=== PATIENT | female | born 1955 | race Caucasian/White ===

== ENCOUNTER 2020-09-04 09:05 | Outpatient (REF) | payer BC, SELFPAY ==
[2020-09-04 10:33] LABS: Lithium 0.78 mmol/L (0.60-1.20)
[2020-09-04 10:47] LABS: Alanine Aminotransferase 108 U/L (0-31); Albumin Level 4.6 g/dL (3.5-5.0); Alkaline Phosphatase 82 U/L (39-117); Anion Gap 11 (12-20); Aspartate Amino Transferase 80 U/L (5-31); Bilirubin Total 0.5 mg/dL (0.0-1.0); Blood Urea Nitrogen 12 mg/dL (9-16); Calcium 10.1 mg/dL (8.4-10.2); Carbon Dioxide 26 mmol/L (22-29); Chloride 105 mmol/L (96-108); Cholesterol 154 mg/dL; Estimated Glomerular Filt Rate > 60; Glucose Random 121 mg/dL (60-115); HDL Cholesterol 42 mg/dL; LDL Cholesterol Calculated 83 mg/dl; Potassium 4.1 mmol/L (3.3-5.1); Sodium 138 mmol/L (135-145); Triglycerides 148 mg/dL
[2020-09-04 10:56] LABS: Thyroid Stimulating Hormone 0.96 uIU/mL (0.32-4.0); Vitamin D 25-OH Total 36.2 ng/mL (>30)
[2020-09-07 23:07] LABS: Lamotrigine Lamictal 7.1 mcg/mL (4.0-18.0)
== END 2020-09-04 09:06 | disposition home or self-care (01) ==
LOC: HO.LAB 09:05
PROVIDERS: Absent Provider Psychiatry & Neurology Psychiatry; PCP Nurse Practitioner Family; Visit Provider Nurse Practitioner Family
DX: F31.9 Bipolar disorder, unspecified (principal); Z79.899 Other long term (current) drug therapy
CPT/HCPCS: 36415; 80053; 80061; 80175; 80178; 82306; 84443

== ENCOUNTER 2021-06-28 09:54 | Outpatient (REF) | payer BC, SELFPAY ==
[2021-06-28 11:02] LABS: Estimated Average Glucose 123 mg/dL; Hemoglobin A1C 149.3738 umol/L; Hemoglobin A1c % 5.9 %
[2021-06-28 11:13] LABS: Lithium 0.66 mmol/L (0.60-1.20)
[2021-06-28 11:44] LABS: Alanine Aminotransferase 82 U/L (0-31); Albumin Level 4.6 g/dL (3.5-5.0); Alkaline Phosphatase 120 U/L (39-117); Anion Gap 13 (12-20); Aspartate Amino Transferase 54 U/L (5-31); Bilirubin Total 0.5 mg/dL (0.0-1.0); Blood Urea Nitrogen 17 mg/dL (9-16); Calcium 10.6 mg/dL (8.4-10.2); Carbon Dioxide 23 mmol/L (22-29); Chloride 107 mmol/L (96-108); Estimated Glomerular Filt Rate > 60; Glucose Fasting 119 mg/dL (60-99); Potassium 4.4 mmol/L (3.3-5.1); Sodium 139 mmol/L (135-145); Total Protein 7.2 g/dL (6.5-8.0)
[2021-06-28 11:50] LABS: Thyroid Stimulating Hormone 0.13 uIU/mL (0.32-4.0)
== END 2021-06-28 09:55 | disposition home or self-care (01) ==
LOC: HO.LAB 09:54
PROVIDERS: Absent Provider Nurse Practitioner Family; PCP Nurse Practitioner Family; Visit Provider Psychiatry & Neurology Psychiatry
DX: F31.9 Bipolar disorder, unspecified (principal); I10 Essential (primary) hypertension
CPT/HCPCS: 36415; 80053; 80178; 83036; 84443

== ENCOUNTER 2021-11-08 08:09 | Outpatient (REF) | payer BC, SELFPAY ==
[2021-11-08 08:44] LABS: Estimated Average Glucose 123 mg/dL; Hemoglobin A1c % 5.9 %
[2021-11-08 09:07] LABS: Calcium 10.6 mg/dL (8.4-10.2); Cholesterol 144 mg/dL; Glucose Fasting 129 mg/dL (60-99); HDL Cholesterol 48 mg/dL; LDL Cholesterol Calculated 69 mg/dl; Triglycerides 136 mg/dL
[2021-11-08 09:26] LABS: TSH reflex Free T4 0.01 uIU/mL (0.32-4.0)
[2021-11-10 16:51] LABS: Calcium (PTHI) 10.4 mg/dL (8.6-10.4); PTHI 73 pg/mL (16-77)
== END 2021-11-08 08:10 | disposition home or self-care (01) ==
LOC: HO.LAB 08:09
PROVIDERS: Absent Provider Nurse Practitioner Family; PCP Nurse Practitioner Family; Visit Provider Psychiatry & Neurology Psychiatry
DX: E03.9 Hypothyroidism, unspecified (principal); F31.9 Bipolar disorder, unspecified
CPT/HCPCS: 36415; 80061; 82310; 82947; 83036; 83970; 84439; 84443

== ENCOUNTER 2022-02-25 08:14 | Outpatient (REF) | payer BC, SELFPAY ==
[2022-02-25 11:54] LABS: Alanine Aminotransferase 51 U/L (0-31); Albumin Level 4.8 g/dL (3.5-5.0); Alkaline Phosphatase 132 U/L (39-117); Anion Gap 14 (12-20); Aspartate Amino Transferase 33 U/L (5-31); Bilirubin Total 0.6 mg/dL (0.0-1.0); Blood Urea Nitrogen 14 mg/dL (9-16); Calcium 10.3 mg/dL (8.4-10.2); Carbon Dioxide 24 mmol/L (22-29); Chloride 105 mmol/L (96-108); Estimated Glomerular Filt Rate > 60; Glucose Random 128 mg/dL (60-115); Potassium 4.2 mmol/L (3.3-5.1); Sodium 139 mmol/L (135-145); Total Protein 7.3 g/dL (6.5-8.0)
[2022-02-25 12:16] LABS: Thyroid Stimulating Hormone 3.76 uIU/mL (0.32-4.0)
[2022-03-02 07:02] LABS: Lamotrigine Lamictal 6.4 mcg/mL (4.0-18.0)
== END 2022-02-25 08:15 | disposition home or self-care (01) ==
LOC: HO.HMGCLDS 08:14
PROVIDERS: PCP Nurse Practitioner Family; Visit Provider Psychiatry & Neurology Psychiatry
DX: F31.9 Bipolar disorder, unspecified (principal)
CPT/HCPCS: 36415; 80053; 80175; 80178; 84443

== ENCOUNTER → 2022-03-02 14:50 | Outpatient (BNVA) | payer BC, SELFPAY | PROVIDERS: PCP Nurse Practitioner Family; Visit Provider Psychiatry & Neurology Psychiatry | DX: F31.78 Bipolar disorder, in full remission, most recent episode mixed (principal); E03.9 Hypothyroidism, unspecified; R73.03 Prediabetes | CPT/HCPCS: 90833 ==

== ENCOUNTER → 2022-07-07 13:58 | Outpatient (BNVA) | payer BC, SELFPAY | PROVIDERS: PCP Nurse Practitioner Family; Visit Provider Psychiatry & Neurology Psychiatry | DX: F31.78 Bipolar disorder, in full remission, most recent episode mixed (principal); R73.03 Prediabetes; E03.9 Hypothyroidism, unspecified | CPT/HCPCS: 99212 ==

== ENCOUNTER 2022-10-21 13:38 | Outpatient (AMB) | payer BC, SELFPAY ==
--- NOTE | 2022-10-21 14:14 | A.OFFPSYCH_ITS ---
Intake Intake Visit Reasons: depression Allergies No Known Allergies Allergy (Verified 03/02/22 15:22) Medication List - Last Reconciled 10/21/22 by Sebas Gomez MD clonidine HCl 0.1 mg PO TID 90 days lamotrigine 150 mg PO BID levothyroxine 100 mcg PO DAILY lithium carbonate 750 mg (2.5 x 300 mg) PO BEDTIME HPI- Psychiatric Chief Complaint: depression HPI Narrative: This patient is in psychiatric follow-up history of bipolar disorder has generally been stable with combination of lithium Lamictal and clonidine. Her primary care physician will be retiring. Patient is on thyroid replacement. She does have part-time job that she enjoys doing and has sold her trailer and has moved in to the family house that she grew up in with her sister she has 1 level and her sister has another. This apparently is working out quite well patient feels more stable no new medical concerns. She is stable long-term relationship with her boyfriend to lives with his son and grandchildren patient seems content present Past Psychiatric History: hx bipolar dx used to see dr santos no suicide attempt Mental Status Exam Mental Status Exam Narrative: Mental Status Exam Narrative: Appearance: Casually dressed Behavior: Cooperative appropriate psychomotor: Within normal limits Speech: Normal volume and prosody Thought proccess logical and goal-directed Thought content: Future oriented no self-harming thoughts Mood: Euthymic Affect: Appropriate to mood full affect SI:denies HI:denies VH/AH:none Delusions: None Insight/judgment: Good insight and judgment Memory/cog: Intact Results Reviewed Results Reviewed: [place] level 0.5 Lamictal level 5.6 LFTs mildly increased which they are chronically blood sugar was 111 kidney function unremarkable Assessment and Plan Assessment & Plan (1) Bipolar 1 disorder, mixed, full remission: Status: Acute Code(s): F31.78 - Bipolar disorder, in full remission, most recent episode mixed Plan Patient generally stable no adverse effects noted from combination of lithium Lamictal has been advised has done no added sweets diet she does have known fatty liver clonidine 0.1 t.i.d. for hypertension no psychosis future oriented continue plan of care encouraged daily walking Medications: Refilled lithium carbonate 750 mg (2.5 x 300 mg) PO BEDTIME 225 tabs 0RF clonidine HCl 0.1 mg PO TID 270 tabs 1RF 90 days Counseling and coordination of Care Pt. Self Management counseling: Exercise, Maintenance-social rhythm and Behavior activation Details-Self Mgmt counseling: Issues related to relationship with free moving in with her sister my satisfaction Diagnosis and Prognosis Counseling: Impact of diagnosis on life functions and Adequacy of current interventions Details: I spent [38] minutes reviewing the record, seeing the patient and documenting in the medical record. Counseling provided to the patient/caregiver as outlined below. Addressed patient/caregiver concerns regarding current medication regime including effective adherence. Addressed patient/caregiver concerns regarding diagnosis and prognosis including accuracy of diagnosis, prognosis over time, impact of diagnosis. Addressed patient/caregiver concerns regarding impact of recent stressors. [facility] Medical History (Updated 03/02/22 @ 15:39 by Sebas Gomez MD) Bipolar 1 disorder, mixed, full remission Borderline diabetes Hypothyroidism Social History: mother daughter attempted suicide gf suicided will be living with sister will be ling with her sister works PT has bf 1 son 1 daughter Substance History: none Trauma History: son 1976 sids Coding Level of Care Code Est Pt Level 3 (63204) Therapy 30m w/E&M (79456) Diagnoses Bipolar 1 disorder, mixed, full remission F31.78
== END 2022-10-21 14:50 | disposition home or self-care (01) ==
LOC: HO.HOP 13:38
PROVIDERS: PCP Nurse Practitioner Family; Visit Provider Psychiatry & Neurology Psychiatry
DX: F31.78 Bipolar disorder, in full remission, most recent episode mixed (principal)
CPT/HCPCS: 90833; 99213

== ENCOUNTER → 2022-10-21 13:38 | Outpatient (BNVA) | payer BC, SELFPAY | PROVIDERS: PCP Nurse Practitioner Family; Visit Provider Psychiatry & Neurology Psychiatry | DX: F31.78 Bipolar disorder, in full remission, most recent episode mixed (principal); R73.03 Prediabetes; E03.9 Hypothyroidism, unspecified | CPT/HCPCS: 90833; 99212 ==

== ENCOUNTER 2023-02-23 13:46 | Outpatient (AMB) | payer BC, SELFPAY ==
--- NOTE | 2023-02-23 15:16 | A.OFFPSYCH_ITS ---
Intake Intake Visit Reasons: depression Allergies No Known Allergies Allergy (Verified 03/02/22 15:22) HPI- Psychiatric Chief Complaint: depression HPI Narrative: Patient seen psychiatric follow-up. Patient doing well generally works part- time can manage her hours has been living with her sister continues generally to be stable. Medically her PCP retired still sees her boyfriend regularly. No manic or depressive episodes. Tolerating lithium Lamictal Past Psychiatric History: hx bipolar dx used to see dr santos no suicide attempt Mental Status Exam Mental Status Exam Narrative: Mental Status Exam Narrative: Appearance: Casually dressed Behavior: Cooperative appropriate psychomotor: Within normal limits Speech: Normal volume and prosody Thought proccess logical and goal-directed Thought content: Future oriented no self-harming thoughts Mood: Euthymic Affect: Appropriate to mood full affect SI:denies HI:denies VH/AH:none Delusions: None Insight/judgment: Good insight and judgment Memory/cog: Intact Assessment and Plan Assessment & Plan (1) Urinary frequency: Status: Acute Code(s): R35.0 - Frequency of micturition (2) Bipolar 1 disorder, mixed, full remission: Status: Acute Code(s): F31.78 - Bipolar disorder, in full remission, most recent episode mixed (3) Borderline diabetes: Status: Acute Code(s): R73.03 - Prediabetes (4) Hypothyroidism: Status: Acute Code(s): E03.9 - Hypothyroidism, unspecified Plan Patient does complain of frequent urination check UA check serum sodium check hemoglobin A1c other labs reviewed pt aware of risks benefits side effects Orders: Orders Sodium Urine Random 02/23/23 R73.03 - Prediabetes, R35.0 - Frequency of micturition UA w Microscopic 02/23/23 R35.0 - Frequency of micturition Hemoglobin A1c 02/23/23 R73.03 - Prediabetes, R35.0 - Frequency of micturition Counseling and coordination of Care Details-Self Mgmt counseling: relational issues Medication management counseling: Effectiveness and Side effects Diagnosis and Prognosis Counseling: Impact of diagnosis on life functions and Adequacy of current interventions Details: I spent [38] minutes reviewing the record, seeing the patient and documenting in the medical record. Counseling provided to the patient/caregiver as outlined below. Addressed patient/caregiver concerns regarding current medication regime including effective adherence. Addressed patient/caregiver concerns regarding diagnosis and prognosis including accuracy of diagnosis, prognosis over time, impact of diagnosis. Addressed patient/caregiver concerns regarding impact of recent stressors. [facility] Medical History (Updated 02/23/23 @ 15:01 by Sebas Gomez MD) Bipolar 1 disorder, mixed, full remission Borderline diabetes Hypothyroidism Social History: mother daughter attempted suicide gf suicided will be living with sister will be ling with her sister works PT has bf 1 son 1 daughter Substance History: none Trauma History: son 1976 sids Coding Level of Care Code Est Pt Level 3 (82400) Therapy 30m w/E&M (68804) Diagnoses Urinary frequency R35.0 Bipolar 1 disorder, mixed, full remission F31.78 Borderline diabetes R73.03 Hypothyroidism E03.9
== END 2023-02-23 15:28 | disposition home or self-care (01) ==
LOC: HO.HOP 13:46
PROVIDERS: PCP Nurse Practitioner Family; Visit Provider Psychiatry & Neurology Psychiatry
DX: F31.78 Bipolar disorder, in full remission, most recent episode mixed (principal); R35.0 Frequency of micturition; R73.03 Prediabetes; E03.9 Hypothyroidism, unspecified
CPT/HCPCS: 90833; 99213

== ENCOUNTER → 2023-02-23 13:46 | Outpatient (BNVA) | payer BC, SELFPAY | PROVIDERS: PCP Nurse Practitioner Family; Visit Provider Psychiatry & Neurology Psychiatry | DX: F31.78 Bipolar disorder, in full remission, most recent episode mixed (principal); R73.03 Prediabetes; E03.9 Hypothyroidism, unspecified; R35.0 Frequency of micturition | CPT/HCPCS: 90833; 99212 ==

== ENCOUNTER 2023-06-14 08:06 | Outpatient (REF) | payer BC, SELFPAY ==
[2023-06-14 11:34] LABS: Appearance Urine Cloudy; Color Urine Yellow; Glucose Urine UA Negative (Negative); Leukocyte Esterase Urine Large (3+) (Negative); Nitrite Urine Negative (Negative); PH 6.5 (5.0-9.0); Specific Gravity - Urine 1.015 (1.005-1.025); UMIC TRIGGER UA YES; Urine Blood Negative (Negative); Urine Ketones Negative (Negative); Urine Protein Negative (Neg-Trace)
[2023-06-14 11:35] LABS: Estimated Average Glucose 126 mg/dL
[2023-06-14 12:11] LABS: Lithium 0.64 mmol/L (0.60-1.20)
[2023-06-14 12:18] LABS: Alanine Aminotransferase 36 U/L (0-31); Albumin Level 4.2 g/dL (3.5-5.0); Alkaline Phosphatase 106 U/L (39-117); Anion Gap 12 (12-20); Aspartate Amino Transferase 26 U/L (5-31); Bilirubin Total 0.4 mg/dL (0.0-1.0); Blood Urea Nitrogen 13 mg/dL (9-16); Calcium 10.2 mg/dL (8.4-10.2); Carbon Dioxide 26 mmol/L (22-29); Chloride 105 mmol/L (96-108); Estimated Glomerular Filt Rate > 60; Glucose Fasting 132 mg/dL (60-99); Potassium 3.8 mmol/L (3.3-5.1); Sodium 139 mmol/L (135-145); TSH reflex Free T4 < 0.01 uIU/mL (0.32-4.0); Total Protein 7.2 g/dL (6.5-8.0)
[2023-06-14 12:35] LABS: Bacteria Urine 3+ (None Seen); Hyaline Casts Urine 0-2 /LPF (0-2); RBC Urine 0-2 /HPF (0-2)
[2023-06-14 13:06] LABS: Free T4 (Free Thyroxine) 1.22 ng/dL (0.71-1.85)
[2023-06-18 23:59] LABS: Lamotrigine Lamictal 4.1 mcg/mL (2.5-15.0)
== END 2023-06-14 08:07 | disposition home or self-care (01) ==
LOC: HO.HMGCLDS 08:06
PROVIDERS: Visit Provider Psychiatry & Neurology Psychiatry
DX: R35.0 Frequency of micturition (principal); F31.78 Bipolar disorder, in full remission, most recent episode mixed; R73.03 Prediabetes; E03.9 Hypothyroidism, unspecified; Z79.899 Other long term (current) drug therapy
CPT/HCPCS: 36415; 80053; 80175; 80178; 81001; 83036; 84300; 84439; 84443

== ENCOUNTER 2023-06-15 13:34 | Outpatient (AMB) | payer BC, SELFPAY ==
--- NOTE | 2023-06-15 13:38 | MHC.OFFVISPS ---
Intake Intake Visit Reasons: depression Allergies No Known Allergies Allergy (Verified 03/02/22 15:22) Medication List - Last Reconciled 06/15/23 by Sebas Gomez MD amlodipine 5 mg PO DAILY clonidine HCl 0.1 mg PO TID 90 days lamotrigine 150 mg PO BID levothyroxine 88 mcg PO DAILY lithium carbonate 750 mg (2.5 x 300 mg) PO BEDTIME HPI- Psychiatric Chief Complaint: depression HPI Narrative: new pcp Lynn Flynn [employer] on hctz 25 mg 2 months now on amlodipine 5 mg no manic no significant depressive episodes no manic episodes. We have recommended no added sweets for long period of time for the patient because of intermittently elevated blood sugar she is on thyroid replacement. No complaints of side effects has generally been stable on clonidine for anxiety and secondary for hypertension she is now on amlodipine in addition. She has been on lithium and Lamictal with good effect Past Psychiatric History: hx bipolar dx used to see dr santos no suicide attempt Mental Status Exam Mental Status Exam Narrative: Mental Status Exam Narrative: Appearance: Casually dressed Behavior: Cooperative appropriate psychomotor: Within normal limits Speech: Normal volume and prosody Thought proccess logical and goal-directed Thought content: Future oriented no self-harming thoughts Mood: Euthymic Affect: Appropriate to mood full affect SI:denies HI:denies VH/AH:none Delusions: None Insight/judgment: Good insight and judgment Memory/cog: Intact tremor noted Assessment and Plan Assessment & Plan (1) Bipolar 1 disorder, mixed, full remission: Status: Acute Code(s): F31.78 - Bipolar disorder, in full remission, most recent episode mixed (2) Borderline diabetes: Status: Acute Code(s): R73.03 - Prediabetes (3) Hypothyroidism: Status: Acute Code(s): E03.9 - Hypothyroidism, unspecified Plan Pt fenerally stable works PT still with bf has been started on hctz and amlodipine ll.66 discussed potential interacactions warnings re lith toxicity hga1c 6.0 she will review with pcp tsh 0.01 she will review with pcp discussed results of labs with pt Levothyroxine needs to be decreased patient may need to be started on metformin she will see her PCP Medications: Refilled lamotrigine 150 mg PO BID 180 tabs 1RF lithium carbonate 750 mg (2.5 x 300 mg) PO BEDTIME 225 tabs 0RF Counseling and coordination of Care Pt. Self Management counseling: Med illness tx adherence and General coping skills Diagnosis and Prognosis Counseling: Adequacy of current interventions Details: I spent [37] minutes reviewing the record, seeing the patient and documenting in the medical record. Counseling provided to the patient/caregiver as outlined below. Addressed patient/caregiver concerns regarding current medication regime including effective adherence. Addressed patient/caregiver concerns regarding diagnosis and prognosis including accuracy of diagnosis, prognosis over time, impact of diagnosis. Addressed patient/caregiver concerns regarding impact of recent stressors. [facility] Medical History (Updated 02/23/23 @ 15:01 by Sebas Gomez MD) Bipolar 1 disorder, mixed, full remission Borderline diabetes Hypothyroidism Social History: mother daughter attempted suicide gf suicided will be living with sister will be ling with her sister works PT has bf 1 son 1 daughter Substance History: none Trauma History: son 1976 sids Coding Level of Care Code Est Pt Level 3 (46517) Therapy 30m w/E&M (01992) Diagnoses Bipolar 1 disorder, mixed, full remission F31.78 Borderline diabetes R73.03 Hypothyroidism E03.9
== END 2023-06-15 14:02 | disposition home or self-care (01) ==
LOC: HO.HOP 13:34
PROVIDERS: PCP Nurse Practitioner; Visit Provider Psychiatry & Neurology Psychiatry
DX: F31.78 Bipolar disorder, in full remission, most recent episode mixed (principal); R73.03 Prediabetes; E03.9 Hypothyroidism, unspecified
CPT/HCPCS: 90833; 99213

== ENCOUNTER → 2023-06-15 13:34 | Outpatient (BNVA) | payer BC, SELFPAY | PROVIDERS: PCP Nurse Practitioner; Visit Provider Psychiatry & Neurology Psychiatry ==

== ENCOUNTER 2023-10-28 14:04 | Outpatient (AMB) | payer BC, SELFPAY ==
--- NOTE | 2023-10-28 15:06 | A.OFFPSYCH_ITS ---
Intake Intake Visit Reasons: Depression Allergies No Known Allergies Allergy (Verified 03/02/22 15:22) Medication List - Last Reconciled 10/28/23 by Sebas Gomez MD amlodipine 5 mg PO DAILY clonidine HCl 0.1 mg PO TID 90 days lamotrigine 150 mg PO BID levothyroxine 75 mcg PO DAILY lithium carbonate 750 mg (2.5 x 300 mg) PO BEDTIME HPI- Psychiatric Chief Complaint: Depression HPI Narrative: The patient the patient continues to do quite well. Her mood is stable no manic or depressive symptoms. She does have a new primary care physician. She continues to see her boyfriend intermittently in she has generally satisfied the relationship although it is limited in his commitment. The patient enjoys living in a house where she has separate apartment with her sister is living in [place]. Patient continues on lithium Lamictal clonidine. He has been stable this regimen she does replacement. No complaints Side effects Past Psychiatric History: hx bipolar dx used to see dr santos no suicide attempt Mental Status Exam Mental Status Exam Narrative: Mental Status Exam Narrative: Appearance: Casually dressed Behavior: Cooperative appropriate psychomotor: Within normal limits Speech: Normal volume and prosody Thought proccess logical and goal-directed Thought content: Future oriented content with working part-time time situation Mood: Euthymic Affect: Appropriate to mood full affect SI:denies HI:denies VH/AH:none Delusions: None Insight/judgment: Good insight and judgment Memory/cog: Intact Mild tremor noted Assessment and Plan Assessment & Plan (1) Bipolar 1 disorder, mixed, full remission: Status: Acute Code(s): F31.78 - Bipolar disorder, in full remission, most recent episode mixed (2) Hypothyroidism: Status: Acute Code(s): E03.9 - Hypothyroidism, unspecified Plan Orders placed for lithium Lamictal metabolic phototypesetting equipment monitor renal function patient is thyroid medications or being managed by PCP . She does tend to variable mild hypo or hyperthyroid states with her TSH in the past reduce and that other times elevated. I did discuss her past results kidney functions have remained stable . History of fatty liver. The patient does intermittently take hydrochlorothiazide his can tend to lower lithium levels Orders: Orders Lamotrigine Lamictal 10/28/23 F31.78 - Bipolar disorder, in full remission, most recent episode mixed, E03.9 - Hypothyroidism, unspecified, R25.1 - Tremor, unspecified [place] 10/28/23 F31.78 - Bipolar disorder, in full remission, most recent episode mixed, E03.9 - Hypothyroidism, unspecified, R25.1 - Tremor, unspecified Comprehensive Met. Panel 10/28/23 F31.78 - Bipolar disorder, in full remission, most recent episode mixed, E03.9 - Hypothyroidism, unspecified, R25.1 - Tremor, unspecified Counseling and coordination of Care Details-Self Mgmt counseling: Issues related to jail and boyfriend adequacy of long-term relationship Medication management counseling: Effectiveness, Side effects and Dosing range Diagnosis and Prognosis Counseling: Adequacy of current interventions Details-Diagnosis/Prognosis counseling: Patient generally stable on this regimen no significant adverse effects noted continue to monitor thyroid and renal effects check levels Details: I spent [] minutes reviewing the record, seeing the patient and documenting in the medical record. Counseling provided to the patient/caregiver as outlined below. Addressed patient/caregiver concerns regarding current medication regime including effective adherence. Addressed patient/caregiver concerns regarding diagnosis and prognosis including accuracy of diagnosis, prognosis over time, impact of diagnosis. Addressed patient/caregiver concerns regarding impact of recent stressors. [facility] Medical History (Updated 10/28/23 @ 15:05 by Sebas Gomez MD) Bipolar 1 disorder, mixed, full remission Borderline diabetes Hypothyroidism Social History: mother daughter attempted suicide gf suicided will be living with sister will be ling with her sister works PT has bf 1 son 1 daughter Substance History: none Trauma History: son 1976 sids Coding Level of Care Code Est Pt Level 4 (95974) Diagnoses Bipolar 1 disorder, mixed, full remission F31.78 Hypothyroidism E03.9
== END 2023-10-28 18:00 | disposition home or self-care (01) ==
LOC: HO.HOP 14:04
PROVIDERS: PCP Nurse Practitioner; Visit Provider Psychiatry & Neurology Psychiatry
DX: F31.78 Bipolar disorder, in full remission, most recent episode mixed (principal); E03.9 Hypothyroidism, unspecified
CPT/HCPCS: 99214

== ENCOUNTER → 2023-10-28 14:04 | Outpatient (BNVA) | payer BC, SELFPAY | PROVIDERS: PCP Nurse Practitioner; Visit Provider Psychiatry & Neurology Psychiatry ==

== ENCOUNTER 2023-11-18 14:03 | Outpatient (REF) | payer BC, SELFPAY ==
[2023-11-18 16:46] LABS: Alanine Aminotransferase 38 U/L (0-31); Albumin Level 4.8 g/dL (3.5-5.0); Alkaline Phosphatase 192 U/L (39-117); Anion Gap 12 (12-20); Aspartate Amino Transferase 29 U/L (5-31); Bilirubin Total 0.5 mg/dL (0.0-1.0); Blood Urea Nitrogen 12 mg/dL (9-16); Carbon Dioxide 27 mmol/L (22-29); Chloride 98 mmol/L (96-108); Estimated Glomerular Filt Rate 60; Glucose Random 107 mg/dL (60-115); Potassium 2.7 mmol/L (3.3-5.1); Sodium 134 mmol/L (135-145); Total Protein 7.9 g/dL (6.5-8.0)
[2023-11-18 16:50] LABS: Lithium 2.13 mmol/L (0.60-1.20)
--- NOTE | 2023-11-18 18:20 | PM.EVENT ---
Event Note Date of Service: 11/18/23 Event Note: Spoke with patient over the phone spoke with patient over the phone spoke with patient over the phone regarding elevated lith level 2.1 k 2.7 patient had had diarrhea vomiting started having balance problems apparently had routine lab work today coincident with onset of symptoms. Spoke with patient advised to go to the emergency room will most likely need rehydration correction of potassium and lithium levels calcium also noted to be elevated. Spoke to emergency room triage Time Spent With Patient Time: Total time managing care of this patient today ____ minutes.
[2023-11-21 23:28] LABS: Lamotrigine Lamictal 4.1 mcg/mL (2.5-15.0)
== END 2023-11-18 14:04 | disposition home or self-care (01) ==
LOC: HO.HMGCLDS 14:03
PROVIDERS: Visit Provider Psychiatry & Neurology Psychiatry
DX: F31.78 Bipolar disorder, in full remission, most recent episode mixed (principal); E03.9 Hypothyroidism, unspecified; R25.1 Tremor, unspecified
CPT/HCPCS: 36415; 80053; 80175; 80178

== ENCOUNTER 2023-11-18 18:31 | Inpatient (IN) | payer MEDICARE, BC, SELFPAY ==
--- NOTE | ~2023-11-18 | XR_ITS ---
EXAMINATION: XR CHEST CLINICAL INFORMATION: Tremors COMPARISON: None available. TECHNIQUE: 2 views of the chest were obtained. FINDINGS: The lungs are adequately expanded. No focal consolidation. No pleural effusions or pneumothorax. The cardiac silhouette is mildly prominent. No acute osseous abnormality. XR/XR chest 2V IMPRESSION: No acute pulmonary disease. Mildly prominent cardiac silhouette.
[2023-11-18 18:41] VITALS: BP 169/68; PULSE 78; RESP 20; TEMP 37.3; O2SAT 93; BMI 33.4
--- NOTE | 2023-11-18 18:44 | ED.RECABL ---
HPI - Recheck/Abnormal Lab/Rx General Chief Complaint: Recheck/Abnormal Lab/Rx Stated Complaint: abnormal labs Time Seen by Provider: 11/18/23 18:52 History of Present Illness ED Provider: Dr. So HPI narrative: 68 y/o F patient; PMH HTN, bipolar disease on lithium; presents with concern for elevated lithium level. The patient's psychiatrist called her today and informed her that her lithium level was 2.1 with potassium 2.7. The patient does report that she feels slower than normal with slurred speech. She states this has been for approx the last 3 - 4 days. Also associated with non-productive cough, nausea/vomiting and non-blood diarrhea. She denies: fever or chills, SOB, abdominal pain, chest pain. She states she has actually been missing doses of her medication for the last few days due to her nausea/vomiting. Related Data Home Medications ?Medication ?Instructions ?Recorded ?Confirmed amlodipine 5 mg tablet 5 mg PO DAILY 06/15/23 10/28/23 levothyroxine 75 mcg tablet 75 mcg PO DAILY 10/28/23 10/28/23 Previous Rx's ?Medication ?Instructions ?Recorded clonidine HCl 0.1 mg tablet 0.1 mg PO TID 90 days #270 tabs 04/26/23 lamotrigine 150 mg tablet 150 mg PO BID #180 tabs 06/15/23 lithium carbonate 300 mg tablet 750 mg (2.5 x 300 mg) PO BEDTIME 06/15/23 #225 tabs Allergies Allergy/AdvReac Type Severity Reaction Status Date / Time No Known Allergies Allergy Verified 11/18/23 18:44 Review of Systems Review of Systems: Yes all other systems are reviewed and are negative Neurologic: Reports Abnormal speech present (Slowed speech ) and Denies Sensory deficit (Neuro) [facility] Past Medical History Attestation statement: The following information was validated with the patient. Source: old records reviewed Medical History Bipolar 1 disorder, mixed, full remission Borderline diabetes Hypothyroidism Social History Social History Smoked in Last 30 Days: No Use of substances other than those prescribed or required for medical reasons: No Advance Directives: No Advance Directives Information Provided: No Physical Exam Vital Signs: Vital Signs: Last Vital Signs Temp 99.1 F 11/18/23 18:41 Pulse 78 11/18/23 18:41 Resp 20 11/18/23 18:41 BP 169/68 H 11/18/23 18:41 Pulse Ox 93 11/18/23 18:41 O2 Del Method Room Air 11/18/23 18:41 BMI result Body Mass Index 33.4 Patient is afebrile and hemodynamically stable, mildly hypertensive. Const: General: cooperative Orientation/consciousness: patient oriented x3 HEENT: Head: Yes normal to inspection and Yes atraumatic Eyes: General: appearance normal, both eyes and all related structures Pupils: Equal, round and reactive pupils present EOM: EOMs intact bilaterally Neck: Neck: Yes normal visual inspection, Yes full ROM, Yes supple and No tender Chest: Chest palpation & inspection: normal inspection of the chest and normal palpation of entire chest wall Resp: Effort & Inspection: normal respiratory effort, able to speak in complete sentences, no cough and no respiratory distress Auscultation: clear to auscultation bilaterally Cardio: Rate: regular rate Rhythm: regular rhythm Peripheral pulses: Peripheral pulses 2+ throughout GI: Inspection: Yes normal to inspection, No Abdominal wall edema and No distended Palpation (GI): Soft to palpation, not firm, nontender, no guarding and not rigid Auscultation: normal bowel sounds : General: Yes no CVA tenderness Back/Spine/Pelvis: Back: no CVA tenderness Neuro: Other: Mildly slowed speech General: patient oriented x3 Cranial nerves: Yes Equal, round and reactive pupils present Cognition (Neuro): normal cognition Speech: Abnormal speech present (Slowed speech ) Motor exam (neuro): 5/5 motor strength present throughout Sensory Exam: No Sensory deficit (Neuro) Coordination: [id number] test normal and [id number] test normal Course Course Course Narrative: This is a Rapid Medical Examination (RME) performed by Levar Kingston PA-C in triage. Full HPI, ROS, assessment and treatment plan per primary provider in the Main ED. 68 yo female hx of HTN and bipolar disorder here for eval of elevated lithium levels. Received expect from Dr. Gomez stating that patient's lithium level noted to be 2.1, potassium 2.7 and calcium elevated. Patient showing signs of lithium toxicity. Patient states she feels slow with slurred speech. Unsteady with walking. sandblaster stone aware and patient immediately brought back to ED bed. Plan: labs Reevaluation(s) Reevaluation #1: Patient is afebrile and hemodynamically stable. Laboratory lithium result and history/physical exam consistent with mild elevated lithium (2.1) with range 1.5 to 2.5. Providing 2L NS. Repeat lithium 2.07. Likely reactive leukocytosis of 17. Potassium 3.0. Provided 40mEq PO potassium. Calcium 11.1. COVID/Flu/RSV negative. Plan: Admit to hospitalist Condition: Stable Medications Administered Generic Name Dose Route Start Last Admin Trade Name Freq PRN Reason Stop Dose Admin Sodium Chloride 1,000 mls @ 999 mls/hr 11/18/23 19:15 11/18/23 19:23 Ns IV 11/18/23 20:15 999 mls/hr .Q1H1M ELENA Administration Sodium Chloride 1,000 mls @ 999 mls/hr 11/18/23 19:15 11/18/23 19:22 Ns IV 11/18/23 20:15 999 mls/hr .Q1H1M ELENA Administration Medical Decision Making Lab Data 11/18/23 19:05 11/18/23 19:05 Labs: Lab Results 11/18/23 Range/Units 19:05 WBC 17.0 H (4.8-10.8) X10*3/uL RBC 4.94 (4.20-5.50) X10*6/uL Hgb 14.1 (12.0-16.0) g/dl Hct 39.4 (37.0-47.0) % MCV 79.8 L (80.0-98.0) fL MCH 28.5 (27.0-33.0) pg MCHC 35.8 H (31.0-35.0) g/dl RDW 12.9 (11.0-16.0) % Plt Count 482 H (160-400) X10*3/uL MPV 8.0 L (9.4-12.3) fL Immature Gran % (Auto) 0.6 H (0.0-0.4) % Neut % (Auto) 75.9 H (45-73) % Lymph % (Auto) 14.0 L (20-40) % [place] % (Auto) 4.2 (2-11) % Eos % (Auto) 5.0 H (0-4) % Baso % (Auto) 0.3 (0-2) % Lymph # (Auto) 2.4 (1.2-4.9) X10*3/uL [place] # (Auto) 0.7 (0.1-1.2) X10*3/uL Eos # (Auto) 0.9 H (0.0-0.4) X10*3/uL Baso # (Auto) 0.1 (0.0-0.2) X10*3/uL Abs Immat Gran (auto) 0.10 H (0.00-0.03) X10*3/uL Absolute Neuts (auto) 12.9 H (2.0-8.3) x10*3/uL Absolute Nucleated RBC 0.000 (0.0-0.012) X10*3/uL Nucleated RBC % (auto) 0.0 (0.0-0.2) /100WBC Sodium 134 L (135-145) mmol/L Potassium 3.0 L (3.3-5.1) mmol/L Chloride 99 (96-108) mmol/L Carbon Dioxide 27 (22-29) mmol/L Anion Gap 11 L (12-20) BUN 12 (9-16) mg/dL Creatinine 0.88 (0.5-1.4) mg/dL Estim Creat Clear Calc 62.7 Estimated GFR > 60 Random Glucose 121 H (60-115) mg/dL Calcium 11.1 H D (8.4-10.2) mg/dL Magnesium 2.2 (1.6-2.6) mg/dL Total Bilirubin 0.5 (0.0-1.0) mg/dL AST 25 (5-31) U/L ALT 35 H (0-31) U/L Alkaline Phosphatase 206 H (39-117) U/L Total Protein 7.6 (6.5-8.0) g/dL Albumin 4.6 (3.5-5.0) g/dL Lipase 50 (8-78) U/L Olivia Lopez De Gutierrez 2.07 H* (0.60-1.20) mmol/L Influenza Type A (PCR) NEGATIVE (Negative) Influenza Type B (PCR) NEGATIVE (Negative) RSV RNA Qual (PCR) NEGATIVE (Negative) SARS-CoV-2 RNA (RT-PCR) NEGATIVE (Negative) Independent Interpretation I performed an independent interpretation of an: EKG Interpretation: NSR 71BPM without ischemic changes Discharge Plan Discharge Patient Disposition: Admitted As Inpatient Print Language: Lao
--- NOTE | 2023-11-18 19:05 | ECG_ITS ---
Test Reason : low k Blood Pressure : / mmHG Vent. Rate : 071 BPM Atrial Rate : 071 BPM P-R Int : 252 ms QRS Dur : 120 ms QT Int : 540 ms P-R-T Axes : 040 -22 082 degrees QTc Int : 586 ms Sinus rhythm with 1st degree A-V block Left ventricular hypertrophy with QRS widening ( R in aVL , [place] product ) Nonspecific ST and T wave abnormality Abnormal ECG No previous ECGs available Referred By: Irene So Electronically Signed By:CHANTEL RAMIREZ MD
[2023-11-18 19:10] LABS: MANUAL DIFF FLAG NO
[2023-11-18 19:18] LABS: Basophils Absolute Auto 0.1 X10*3/uL (0.0-0.2); Basophils Percent Auto 0.3 % (0-2); Eosinophils Absolute Auto 0.9 X10*3/uL (0.0-0.4); Hematocrit 39.4 % (37.0-47.0); Hemoglobin 14.1 g/dl (12.0-16.0); Imm Gran Pct Auto 0.6 % (0.0-0.4); Lymphocytes Absolute Auto 2.4 X10*3/uL (1.2-4.9); Mean Corpuscular HGB Conc 35.8 g/dl (31.0-35.0); Mean Corpuscular Hemoglobin 28.5 pg (27.0-33.0); Mean Corpuscular Volume 79.8 fL (80.0-98.0); Monocytes Absolute Auto 0.7 X10*3/uL (0.1-1.2); Monocytes Percent Auto 4.2 % (2-11); Neutrophils Absolute Auto 12.9 x10*3/uL (2.0-8.3); Neutrophils Percent Auto 75.9 % (45-73); Platelet Count 482 X10*3/uL (160-400); Red Blood Count 4.94 X10*6/uL (4.20-5.50); Red Cell Distribution Width 12.9 % (11.0-16.0)
[2023-11-18] MEDS: 0.9 % Sodium Chloride 1,000 ML 999 ML IV ×2 (19:22→19:23)
[2023-11-18 19:25] LABS: Lipase 50 U/L (8-78)
[2023-11-18 19:27] LABS: Alanine Aminotransferase 35 U/L (0-31); Albumin Level 4.6 g/dL (3.5-5.0); Alkaline Phosphatase 206 U/L (39-117); Anion Gap 11 (12-20); Aspartate Amino Transferase 25 U/L (5-31); Bilirubin Total 0.5 mg/dL (0.0-1.0); Blood Urea Nitrogen 12 mg/dL (9-16); Calcium 11.1 mg/dL (8.4-10.2); Carbon Dioxide 27 mmol/L (22-29); Chloride 99 mmol/L (96-108); Creatinine Clr Calc Pharmacy 62.7; Estimated Glomerular Filt Rate > 60; Glucose Random 121 mg/dL (60-115); Magnesium 2.2 mg/dL (1.6-2.6); Sodium 134 mmol/L (135-145); Total Protein 7.6 g/dL (6.5-8.0)
[2023-11-18 19:34] LABS: Lithium 2.07 mmol/L (0.60-1.20)
[2023-11-18 19:48] LABS: Influenza A PCR NEGATIVE (Negative); Influenza B PCR NEGATIVE (Negative); Resp Syncy Virus RNA Qual PCR NEGATIVE (Negative); SARS COV2 PCR INHOUSE NEGATIVE (Negative)
[2023-11-18 20:07] VITALS: BP 146/121; PULSE 75; RESP 17; TEMP 36.7; O2SAT 95
--- NOTE | 2023-11-18 20:15 | P.HPHOSP_ITS ---
History of Present Illness Date of Service: 11/18/23 Chief Complaint: n/v 68F PMH htn, biploar, hypothryoid presented with nausea and vomiting. patient states several days of decreased po intake, nausea, vomiting. inability to tolerate po. has actually been taking fewer meds, no new changes in meds. labs showed lithium of 2.25. recommended to come to ED. no chest pain, fever, chills. reporting some tremors, foggy brain . Review of Systems 2 Review of Systems: Yes all other systems are reviewed and are negative [facility] Medical History Bipolar 1 disorder, mixed, full remission Borderline diabetes Hypothyroidism Social History Smoked in Last 30 Days: No Use of substances other than those prescribed or required for medical reasons: No Advance Directives: No Advance Directives Information Provided: No Meds Allergies Allergy/AdvReac Type Severity Reaction Status Date / Time No Known Allergies Allergy Verified 11/18/23 18:44 Active Medications: Current Medications Acetaminophen (Acetaminophen 325 Mg Tablet) 650 mg PO Q6H PRN PRN Reason: Pain, Mild (Pain Scale 1-3), fever or headache Amlodipine Besylate (Amlodipine Besylate 5 Mg Tablet) 5 mg PO DAILY [facility]; Protocol Calcium Carbonate (Calcium Carbonate 750 Mg Tab.Chew) 750 mg PO Q4H PRN PRN Reason: Heartburn Clonidine HCl (Clonidine Hcl 0.1 Mg Tablet) 0.1 mg PO BID [facility]; Protocol Enoxaparin Sodium (Enoxaparin Sodium 40 Mg/0.4 Ml Syringe) 40 mg SUBCUT Q24H [facility] Sodium Chloride (Ns) 1,000 mls @ 999 mls/hr IV .Q1H1M [facility] Stop: 11/18/23 20:15 Last Admin: 11/18/23 19:23 Dose: 999 mls/hr Sodium Chloride (Ns) 1,000 mls @ 999 mls/hr IV .Q1H1M [facility] Stop: 11/18/23 20:15 Last Admin: 11/18/23 19:22 Dose: 999 mls/hr Sodium Chloride (Ns) 1,000 mls @ 125 mls/hr IVCONT .Q8H [facility] Lamotrigine (Lamotrigine 25 Mg Tablet) 150 mg PO BID [facility] Levothyroxine Sodium (Levothyroxine Sodium 75 Mcg Tablet) 75 mcg PO DAILY@0600 [facility] Magnesium Hydroxide (Milk Of Magnesia 30 Ml Oral.Susp) 30 ml PO DAILY PRN PRN Reason: Constipation Melatonin (Melatonin 3 Mg Tablet) 6 mg PO BEDTIME PRN PRN Reason: Insomnia Sodium Chloride (0.9 % Sodium Chloride Flush 3 Ml Syringe) 3 ml IVFLUSH QSHIFT [facility] Home Medications ?Medication ?Instructions ?Recorded ?Confirmed ?Last Taken ?Type amlodipine 5 mg tablet 5 mg PO DAILY 06/15/23 10/28/23 Unknown History levothyroxine 75 mcg tablet 75 mcg PO DAILY 10/28/23 10/28/23 Unknown History hydrochlorothiazide 25 mg tablet 25 mg PO DAILY 11/18/23 Unknown History Physical Exam 2 Vital Signs and Narrative: Vital Signs: Last Vital Signs Temp 98.1 F 11/18/23 20:07 Pulse 75 11/18/23 20:07 Resp 17 11/18/23 20:07 BP 146/121 H 11/18/23 20:07 Pulse Ox 95 11/18/23 20:07 O2 Del Method Room Air 11/18/23 20:07 BMI result Body Mass Index 33.4 General: AO X 3, no acute distress Resp: CTA bilateral, no accessory muscles used CVS: S1,S2,RRR GI: soft, non tender, non distended Neuro: motor grossly intact, alert Psych: appropriate affect, appropriate insight Results Labs 11/18/23 19:05 11/18/23 19:05 Labs: Laboratory Results - last 24 hr 11/18/23 19:05 MCV 79.8 L MCH 28.5 MCHC 35.8 H RDW 12.9 Plt Count 482 H MPV 8.0 L Immature Gran % (Auto) 0.6 H Neut % (Auto) 75.9 H Lymph % (Auto) 14.0 L [place] % (Auto) 4.2 Eos % (Auto) 5.0 H Baso % (Auto) 0.3 Lymph # (Auto) 2.4 [place] # (Auto) 0.7 Eos # (Auto) 0.9 H Baso # (Auto) 0.1 Abs Immat Gran (auto) 0.10 H Absolute Neuts (auto) 12.9 H Absolute Nucleated RBC 0.000 Nucleated RBC % (auto) 0.0 Anion Gap 11 L Estim Creat Clear Calc 62.7 Estimated GFR > 60 Random Glucose 121 H Calcium 11.1 H D Magnesium 2.2 Total Bilirubin 0.5 AST 25 ALT 35 H Alkaline Phosphatase 206 H Total Protein 7.6 Albumin 4.6 Lipase 50 [place] 2.07 H* Influenza Type A (PCR) NEGATIVE Influenza Type B (PCR) NEGATIVE RSV RNA Qual (PCR) NEGATIVE SARS-CoV-2 RNA (RT-PCR) NEGATIVE Assessment and Plan (1) Nausea & vomiting: Status: Acute Plan 68F PMH htn, biploar, hypothryoid presented with nausea and vomiting acute lithium toxicity complicated by mild neurotoxicity, GI toxicity continue IV NS, holding lithium, monitor bmp, lithium levels psych eval for med suggestions acute hypokalemia replace and monitor hypercalemia, acute due to dehydration ivf, monitor hypothyroid synthroid htn amldoipine clonidine bipolar lamictal, follow up psych dvt prophylaxis - lovenox full code patient with lithium toxicity requiring aggressive hydration and close monitoring at risk for neuro and nephrotoxiocity therefore expected to require atleast 2 midnights inpatient Quality Stroke Does the patient have a stroke diagnosis?: No VTE Prior VTE?: No VTE Risk Level:: Medical - moderate - high VTE Device Contraindication: Treatment Not Indicated VTE Drug Contraindication: N/A - Med Ordered
--- NOTE | 2023-11-18 20:25 | PHA.MEDREC ---
Addendum entered by Denise Prince RPh 11/18/23 20:41: reviewed by [facility]. Original Note: Pharmacy Consult ? Medication Reconciliation Pharmacy has completed the medication reconciliation. Spoke to patient to confirm med list. patient was very slow at answering question, however she was able to tell me how she takes her medication
[2023-11-18] MEDS: Potassium Chloride ER 20 MEQ TAB.ER.PRT PO (20:39)
[2023-11-18 22:36] VITALS: BP 118/64
[2023-11-18] MEDS: cloNIDine HCL 0.1 MG TABLET 0.2 MG PO (22:36)
[2023-11-18] MEDS: lamoTRIgine 25 MG TABLET 150 MG PO (22:36)
--- NOTE | 2023-11-18 22:41 | PC.NURSE ---
2 initial boluses of IVF continue to infuse slowly without s/s of complications noted to insertion site. pt's maintenance fluids will be hung once boluses complete
[2023-11-19] VITALS (8 sets, daily range): BP systolic 110–142; BP diastolic 30–67; PULSE 12–82; RESP 18–24; TEMP 36.7–37.4; O2SAT 94–96; BMI 35.4
[2023-11-19 00:37] LABS: Alanine Aminotransferase 30 U/L (0-31); Albumin Level 4.2 g/dL (3.5-5.0); Alkaline Phosphatase 193 U/L (39-117); Anion Gap 9 (12-20); Aspartate Amino Transferase 23 U/L (5-31); Bilirubin Total 0.4 mg/dL (0.0-1.0); Blood Urea Nitrogen 10 mg/dL (9-16); Calcium 10.2 mg/dL (8.4-10.2); Carbon Dioxide 28 mmol/L (22-29); Chloride 105 mmol/L (96-108); Creatinine Clr Calc Pharmacy 67.3; Estimated Glomerular Filt Rate > 60; Glucose Random 133 mg/dL (60-115); Potassium 2.7 mmol/L (3.3-5.1); Sodium 139 mmol/L (135-145); Total Protein 6.8 g/dL (6.5-8.0)
[2023-11-19] MEDS: 0.9 % Sodium Chloride 1,000 ML 125 ML IVCONT ×3 (01:51→20:34)
[2023-11-19] MEDS: Potassium Chloride ER 20 MEQ TAB.ER.PRT 40 MEQ PO ×2 (01:54→09:01)
[2023-11-19 05:51] LABS: Hematocrit 34.9 % (37.0-47.0); Mean Corpuscular HGB Conc 34.4 g/dl (31.0-35.0); Mean Corpuscular Hemoglobin 28.2 pg (27.0-33.0); Mean Corpuscular Volume 81.9 fL (80.0-98.0); Mean Platelet Volume 8.2 fL (9.4-12.3); Platelet Count 395 X10*3/uL (160-400); Red Blood Count 4.26 X10*6/uL (4.20-5.50); White Blood Count 13.1 X10*3/uL (4.8-10.8)
[2023-11-19 06:11] LABS: Lithium 1.77 mmol/L (0.60-1.20)
[2023-11-19 06:12] LABS: Alanine Aminotransferase 28 U/L (0-31); Albumin Level 3.8 g/dL (3.5-5.0); Alkaline Phosphatase 175 U/L (39-117); Anion Gap 7 (12-20); Aspartate Amino Transferase 20 U/L (5-31); Bilirubin Direct 0.2 mg/dL (0.0-0.5); Bilirubin Total 0.4 mg/dL (0.0-1.0); Blood Urea Nitrogen 9 mg/dL (9-16); Calcium 9.6 mg/dL (8.4-10.2); Carbon Dioxide 24 mmol/L (22-29); Chloride 109 mmol/L (96-108); Estimated Glomerular Filt Rate > 60; Glucose Fasting 143 mg/dL (60-99); Magnesium 2.2 mg/dL (1.6-2.6); Potassium 3.1 mmol/L (3.3-5.1); Sodium 137 mmol/L (135-145); Total Protein 6.1 g/dL (6.5-8.0)
[2023-11-19] MEDS: Levothyroxine Sodium 75 MCG TABLET PO (07:06)
[2023-11-19] MEDS: amLODIPine Besylate 5 MG TABLET PO (08:34)
[2023-11-19] MEDS: cloNIDine HCL 0.1 MG TABLET PO (08:35)
[2023-11-19] MEDS: lamoTRIgine 25 MG TABLET 150 MG PO ×2 (08:35→20:33)
[2023-11-19] MEDS: Enoxaparin Sodium 40 MG/0.4 ML SYRINGE SUBCUT (08:36)
--- NOTE | 2023-11-19 08:43 | PM.DS ---
DS: Providers Provider Date of Service: 11/20/23 Date of admission: 11/18/23 20:11 Date of discharge: 11/20/23 Primary care physician: Nandini Medeiros CNP Consults: 11/18/23 20:09 Consult to Psychiatry Routine Consulting Provider: Psych Covering Reason for consultation: lithium toxicity, ?medication plan DS: Diagnosis Discharge Diagnosis (1) Nausea & vomiting: Status: Acute DS: Summary Hospital Course Hospital Course: admission hpi: Chief Complaint: n/v 68F PMH htn, biploar, hypothryoid presented with nausea and vomiting. patient states several days of decreased po intake, nausea, vomiting. inability to tolerate po. has actually been taking fewer meds, no new changes in meds. labs showed lithium of 2.25. recommended to come to ED. no chest pain, fever, chills. reporting some tremors, foggy brain . Hospital course: patient presents nausea vomiting and found to have lithium toxicity, hypokalemia and hypercalcemia. Initial lithium level of 2.13 has decreased to 1.77 following IV hydration. her symptoms have resolved she is to follow up with Psychiatry for further medication management for her psychiatric med. Patient was also noted to be hypokalemic with potassium level of 2.7. This is due to hydrochlorothiazide which will be discontinued And Norvasc increased to 10 mg for her blood pressure management. She has received potassium supplement and present potassium level is 3.1 Time Attestation Discharge Coordination Time (in mins): 35 Quality: Safe Use of Opioids Does Pt have an Active Cancer Diagnosis on the Problem List?: No Quality: Stroke Does the patient have a stroke diagnosis?: No Physical Exam Vital Signs: Vitals 11/20/23 07:47 Temperature 97.9 F Pulse Rate 97 Respiratory Rate 16 Blood Pressure 144/65 H Pulse Oximetry 95 Oxygen Delivery Me thod Room Air Const: Other: General: AO X 3, no acute distress Resp: CTA bilateral CVS: S1,S2,RRR GI: +BS, NT, no distention Skin: No rash Neuro: motor grossly intact Psych: appropriate affect DS: Data Data Completed and Pending Labs on day of discharge: Laboratory Results - last 24 hr 11/18/23 11/19/23 11/19/23 19:05 00:09 05:22 WBC 17.0 H 13.1 H RBC 4.94 4.26 Hgb 14.1 12.0 Hct 39.4 34.9 L MCV 79.8 L 81.9 MCH 28.5 28.2 MCHC 35.8 H 34.4 RDW 12.9 13.0 Plt Count 482 H 395 MPV 8.0 L 8.2 L Immature Gran % (Auto) 0.6 H Neut % (Auto) 75.9 H Lymph % (Auto) 14.0 L [place] % (Auto) 4.2 Eos % (Auto) 5.0 H Baso % (Auto) 0.3 Lymph # (Auto) 2.4 [place] # (Auto) 0.7 Eos # (Auto) 0.9 H Baso # (Auto) 0.1 Abs Immat Gran (auto) 0.10 H Absolute Neuts (auto) 12.9 H Absolute Nucleated RBC 0.000 0.000 Nucleated RBC % (auto) 0.0 0.0 Sodium 134 L 139 137 Potassium 3.0 L 2.7 L* 3.1 L Chloride 99 105 109 H Carbon Dioxide 27 28 24 Anion Gap 11 L 9 L 7 L BUN 12 10 9 Creatinine 0.88 0.82 0.80 Estim Creat Clear Calc 62.7 67.3 69.0 Estimated GFR > 60 > 60 > 60 Random Glucose 121 H 133 H Fasting Glucose 143 H Calcium 11.1 H D 10.2 D 9.6 Magnesium 2.2 2.2 Total Bilirubin 0.5 0.4 0.4 Direct Bilirubin 0.2 AST 25 23 20 ALT 35 H 30 28 Alkaline Phosphatase 206 H 193 H 175 H Total Protein 7.6 6.8 6.1 L Albumin 4.6 4.2 3.8 Lipase 50 [place] 2.07 H* 1.80 H* 1.77 H* Influenza Type A (PCR) NEGATIVE Influenza Type B (PCR) NEGATIVE RSV RNA Qual (PCR) NEGATIVE SARS-CoV-2 RNA (RT-PCR) NEGATIVE Discharge Plan Discharge Anticipated Discharge Date/Time: 11/20/23 09:01 Patient Disposition: Home, Self-Care Discharge Diagnosis: lithium toxicity, hypokalemia Referrals: Nandini Medeiros, RADHA [Primary Care Provider] - 1 Week Discharge Medications: New amlodipine [Norvasc] 10 mg tablet 10 mg PO DAILY Qty: 90 0RF Continued clonidine HCl 0.1 mg Tablet 0.2 mg PO BEDTIME clonidine HCl 0.1 mg tablet 0.1 mg PO DAILY lamotrigine 150 mg tablet 150 mg PO BID Qty: 180 1RF levothyroxine 75 mcg tablet 75 mcg PO DAILY@0600 Discontinued hydrochlorothiazide 25 mg tablet 25 mg PO DAILY amlodipine 5 mg tablet 5 mg PO DAILY lithium carbonate 300 mg tablet 750 mg PO BEDTIME Qty: 225 0RF Discharge Orders: Discharge Order (Routine); Ordered 11/20/23 Ordered By: Michele Weston Diet: Advance to usual diet Activity on Discharge: As tolerated Stand Alone Forms: Patient Portal Discharge page Print Language: Marshallese Care Plan Goals: recovery from lithium toxicity Health Concerns: lithium toxicity hypokalemia Plan of Treatment: follow-up with psychiatry for further management of you psychiatric medication stop taking hydrochlorothiazide for high blood pressure, Norvasc has been increased to 10 mg daily follow up with your primary care doctor in a week Assessment: see above
--- NOTE | 2023-11-19 08:48 | HO.PM.IMPN ---
Subjective Subjective Date of Service: 11/19/23 Interval History: follow-up on lithium toxicity symptoms resolved, lithium level is going down Physical Exam Vital Signs: Vital Signs: Last Vital Signs Temp 98.3 F 11/19/23 08:00 Pulse 65 11/19/23 08:00 Resp 20 11/19/23 08:00 BP 137/67 11/19/23 08:35 Pulse Ox 96 11/19/23 08:00 O2 Del Method Room Air 11/19/23 08:00 BMI result Body Mass Index 33.4 General: AO X 3, no acute distress Resp: CTA bilateral CVS: S1,S2,RRR GI: +BS, NT, no distention Skin: No rash Neuro: motor grossly intact Psych: appropriate affect Objective Data Active Medications Acetaminophen (Acetaminophen 325 Mg Tablet) 650 mg PO Q6H PRN PRN Reason: Pain, Mild (Pain Scale 1-3), fever or headache Amlodipine Besylate (Amlodipine Besylate 10 Mg Tablet) 10 mg PO DAILY [facility]; Protocol Calcium Carbonate (Calcium Carbonate 750 Mg Tab.Chew) 750 mg PO Q4H PRN PRN Reason: Heartburn Clonidine HCl (Clonidine Hcl 0.1 Mg Tablet) 0.2 mg PO BEDTIME [facility]; Protocol Last Admin: 11/18/23 22:36 Dose: 0.2 mg Documented By: SHERRILL Clonidine HCl (Clonidine Hcl 0.1 Mg Tablet) 0.1 mg PO DAILY [facility] Last Admin: 11/19/23 08:35 Dose: 0.1 mg Documented By: KYMBERLY Enoxaparin Sodium (Enoxaparin Sodium 40 Mg/0.4 Ml Syringe) 40 mg SUBCUT Q24H [facility] Last Admin: 11/19/23 08:36 Dose: 40 mg Documented By: KYMBERLY Sodium Chloride (Ns) 1,000 mls @ 125 mls/hr IVCONT .Q8H [facility] Last Admin: 11/19/23 01:51 Dose: 125 mls/hr Documented By: SHERRILL Lamotrigine (Lamotrigine 25 Mg Tablet) 150 mg PO BID [facility] Last Admin: 11/19/23 08:35 Dose: 150 mg Documented By: KYMBERLY Levothyroxine Sodium (Levothyroxine Sodium 75 Mcg Tablet) 75 mcg PO DAILY@0600 [facility] Last Admin: 08/09/24 07:06 Dose: 75 mcg Documented By: SHERRILL Magnesium Hydroxide (Milk Of Magnesia 30 Ml Oral.Susp) 30 ml PO DAILY PRN PRN Reason: Constipation Melatonin (Melatonin 3 Mg Tablet) 6 mg PO BEDTIME PRN PRN Reason: Insomnia Sodium Chloride (0.9 % Sodium Chloride Flush 3 Ml Syringe) 3 ml IVFLUSH QSHIFT [facility] Last Admin: 11/19/23 01:55 Dose: Not Given Documented By: SHERRILL Non-Admin Reason: 10ml flush Labs 11/19/23 05:22 11/19/23 05:22 Labs: Laboratory Results - last 24 hr 11/18/23 11/19/23 11/19/23 19:05 00:09 05:22 MCV 79.8 L 81.9 MCH 28.5 28.2 MCHC 35.8 H 34.4 RDW 12.9 13.0 Plt Count 482 H 395 MPV 8.0 L 8.2 L Immature Gran % (Auto) 0.6 H Neut % (Auto) 75.9 H Lymph % (Auto) 14.0 L [place] % (Auto) 4.2 Eos % (Auto) 5.0 H Baso % (Auto) 0.3 Lymph # (Auto) 2.4 [place] # (Auto) 0.7 Eos # (Auto) 0.9 H Baso # (Auto) 0.1 Abs Immat Gran (auto) 0.10 H Absolute Neuts (auto) 12.9 H Absolute Nucleated RBC 0.000 0.000 Nucleated RBC % (auto) 0.0 0.0 Anion Gap 11 L 9 L 7 L Estim Creat Clear Calc 62.7 67.3 69.0 Estimated GFR > 60 > 60 > 60 Random Glucose 121 H 133 H Fasting Glucose 143 H Calcium 11.1 H D 10.2 D 9.6 Magnesium 2.2 2.2 Total Bilirubin 0.5 0.4 0.4 Direct Bilirubin 0.2 AST 25 23 20 ALT 35 H 30 28 Alkaline Phosphatase 206 H 193 H 175 H Total Protein 7.6 6.8 6.1 L Albumin 4.6 4.2 3.8 Lipase 50 [place] 2.07 H* 1.80 H* 1.77 H* Influenza Type A (PCR) NEGATIVE Influenza Type B (PCR) NEGATIVE RSV RNA Qual (PCR) NEGATIVE SARS-CoV-2 RNA (RT-PCR) NEGATIVE Assessment and Plan (1) Nausea & vomiting: Status: Acute (2) Hypokalemia: Status: Acute (3) Hypercalcemia: Status: Acute (4) [place] toxicity: Status: Acute Plan 68F PMH htn, biploar, hypothryoid presented with nausea and vomiting acute lithium toxicity complicated by mild neurotoxicity, GI toxicity--resolved continue IV NS, holding lithium, monitor bmp, lithium levels psych eval for med suggestions acute hypokalemia d/t HCTZ replace and monitor Stop HCTZ HTN--stop HCTZ as above and increase Norvasc to 10, continue clonidine hypercalemia, acute--resolved due to dehydration hypothyroid synthroid htn amldoipine clonidine, Leukocytosis-- reactive trending down without antibiotics. bipolar lamictal, follow up psych dvt prophylaxis - lovenox full code need for inpt: lithium toxicyt, needing IVF and frepent level check possible DC later today. Quality Stroke Does the patient have a stroke diagnosis?: No VTE Prior VTE?: No VTE Risk Level:: Medical - moderate - high VTE Device Contraindication: Treatment Not Indicated VTE Drug Contraindication: N/A - Med Ordered
--- NOTE | 2023-11-19 11:36 | MHC.CM.PN ---
PT REPORTS SHE LIVES ALONE BUT HER SISTER LIVES DOWNSTAIRS SHE REPORTS BEING INDEPENDENT WITH CARE AND MOBILITY PT REPORTS SHE HAS A CPAP BUT DOES NOT USE IT SHE SAYS SHE THINKS SHE HAS A HCP, COPY REQUESTED PCP: DESI SOUZA IMM DELIVERED DCP: HOME NO SERVICES VIA PRIVATE TRANSPORT
--- NOTE | 2023-11-19 13:50 | PM.PSYCN ---
History of Present Illness Date of Service: 11/19/23 Chief Complaint: lithium toxicity Reason for Consult: Confusion lithium toxicity Requesting physician: Sebas Gomez Sources of Information: patient interviewed and chart reviewed Additional Sources of Information: Case reviewed with hospitalist service HPI Narrative: The patient was contacted on 11/18/2023 by this adjusto writer operator after receiving a elevated lithium level of 2.0 and hypokalemia. Call was placed to the patient to come to the emergency room .Patient was originally seen in the emergency room on 11/18 23, patient was brought to the emergency room by family she was having confusion tremor vomiting difficulty with ambulation. The patient has a history of bipolar disorder has been quite stable for an extended period of time and has been stable on lithium and Lamictal for many years. Patient apparently had perhaps some kind of GI illness about a week or more ago became dehydrated and gradually had an increase in symptoms. She did not contact this adjusto writer operator her outpatient psychiatrist. Patient had recently been seen as an outpatient her levels were unremarkable mildly elevated blood sugar and alk phos history of fatty liver question? No recent change otherwise in medication there is a history of hypothyroidism she is being followed by a new PCP Her lithium level was noted to be 2 in the emergency room Past Psychiatric History: hx bipolar dx used to see dr santos no suicide attempt Medical Evaluation Reviewed: Yes Personal & Social History: Patient is a lives in her own apartment in a house that her sister owns overlooking the [facility]. She works part-time does have a long-term male friend that she sees [facility] Medical History Bipolar 1 disorder, mixed, full remission Borderline diabetes Hypothyroidism Social History: mother daughter attempted suicide gf suicided will be living with sister will be ling with her sister works PT has bf 1 son 1 daughter Trauma History: son 1976 sids Diagnostics Vital Signs (24Hr): Vital Signs - 24 hr 11/18/23 18:41 11/18/23 20:07 11/18/23 22:36 Temperature 99.1 F 98.1 F Pulse Rate 78 75 Respiratory Rate 20 17 Blood Pressure 169/68 H 146/121 H 118/64 Pulse Oximetry 93 95 Oxygen Delivery Method Room Air Room Air 11/19/23 02:12 11/19/23 04:21 11/19/23 08:00 Temperature 98.0 F 98.3 F Pulse Rate 12 L 62 65 Respiratory Rate 24 H 18 20 Blood Pressure 129/62 112/42 L 137/67 Pulse Oximetry 96 96 Oxygen Delivery Method Room Air Room Air Room Air 11/19/23 08:34 11/19/23 08:35 11/19/23 12:11 Temperature 98.1 F Pulse Rate 72 Respiratory Rate 20 Blood Pressure 137/67 137/67 110/30 L Pulse Oximetry 96 Oxygen Delivery Method Room Air BMI result Body Mass Index 33.4 Labs 11/19/23 05:22 11/20/23 06:02 Labs: Laboratory Results - last 48 hr 11/18/23 11/19/23 11/19/23 19:05 00:09 05:22 WBC 17.0 H 13.1 H RBC 4.94 4.26 Hgb 14.1 12.0 Hct 39.4 34.9 L MCV 79.8 L 81.9 MCH 28.5 28.2 MCHC 35.8 H 34.4 RDW 12.9 13.0 Plt Count 482 H 395 MPV 8.0 L 8.2 L Immature Gran % (Auto) 0.6 H Neut % (Auto) 75.9 H Lymph % (Auto) 14.0 L [place] % (Auto) 4.2 Eos % (Auto) 5.0 H Baso % (Auto) 0.3 Lymph # (Auto) 2.4 [place] # (Auto) 0.7 Eos # (Auto) 0.9 H Baso # (Auto) 0.1 Abs Immat Gran (auto) 0.10 H Absolute Neuts (auto) 12.9 H Absolute Nucleated RBC 0.000 0.000 Nucleated RBC % (auto) 0.0 0.0 Sodium 134 L 139 137 Potassium 3.0 L 2.7 L* 3.1 L Chloride 99 105 109 H Carbon Dioxide 27 28 24 Anion Gap 11 L 9 L 7 L BUN 12 10 9 Creatinine 0.88 0.82 0.80 Estim Creat Clear Calc 62.7 67.3 69.0 Estimated GFR > 60 > 60 > 60 Random Glucose 121 H 133 H Fasting Glucose 143 H Calcium 11.1 H D 10.2 D 9.6 Magnesium 2.2 2.2 Total Bilirubin 0.5 0.4 0.4 Direct Bilirubin 0.2 AST 25 23 20 ALT 35 H 30 28 Alkaline Phosphatase 206 H 193 H 175 H Total Protein 7.6 6.8 6.1 L Albumin 4.6 4.2 3.8 Lipase 50 [place] 2.07 H* 1.80 H* 1.77 H* Influenza Type A (PCR) NEGATIVE Influenza Type B (PCR) NEGATIVE RSV RNA Qual (PCR) NEGATIVE SARS-CoV-2 RNA (RT-PCR) NEGATIVE Imaging Radiology Impressions: ITS Impressions Chest X-Ray 11/18/23 19:27 IMPRESSION: No acute pulmonary disease. Mildly prominent cardiac silhouette. Mental Status Exam Mental Status Exam Narrative: Mental Status Exam Narrative: Appearance: Wearing hospital garb Behavior: Cooperative psychomotor: Tremulous difficulty with balance Speech: Clear Thought proccess logical able to take in information regarding her condition dehydration and probable GI illness causing elevated lithium level Thought content: Able to relate recent illness causing vomiting question diarrhea recent balance problems otherwise clear sensorium [place] reassured after conversation Mood: Some initial anxiety Affect: Appropriate to mood SI:denies HI:denies VH/AH:none Delusions: None Insight/judgment: Educated again regarding lithium patient could have called for help sooner Memory/cog: Some fogginess for past couple of days Medications Medications Current Medications Acetaminophen (Acetaminophen 325 Mg Tablet) 650 mg PO Q6H PRN PRN Reason: Pain, Mild (Pain Scale 1-3), fever or headache Amlodipine Besylate (Amlodipine Besylate 10 Mg Tablet) 10 mg PO DAILY [facility]; Protocol Last Admin: 11/19/23 08:56 Dose: Not Given Calcium Carbonate (Calcium Carbonate 750 Mg Tab.Chew) 750 mg PO Q4H PRN PRN Reason: Heartburn Clonidine HCl (Clonidine Hcl 0.1 Mg Tablet) 0.2 mg PO BEDTIME [facility]; Protocol Last Admin: 11/18/23 22:36 Dose: 0.2 mg Clonidine HCl (Clonidine Hcl 0.1 Mg Tablet) 0.1 mg PO DAILY [facility] Last Admin: 11/19/23 08:35 Dose: 0.1 mg Enoxaparin Sodium (Enoxaparin Sodium 40 Mg/0.4 Ml Syringe) 40 mg SUBCUT Q24H [facility] Last Admin: 11/19/23 08:36 Dose: 40 mg Sodium Chloride (Ns) 1,000 mls @ 125 mls/hr IVCONT .Q8H [facility] Last Admin: 11/19/23 12:18 Dose: 125 mls/hr Lamotrigine (Lamotrigine 25 Mg Tablet) 150 mg PO BID [facility] Last Admin: 11/19/23 08:35 Dose: 150 mg Levothyroxine Sodium (Levothyroxine Sodium 75 Mcg Tablet) 75 mcg PO DAILY@0600 [facility] Last Admin: 11/19/23 07:06 Dose: 75 mcg Magnesium Hydroxide (Milk Of Magnesia 30 Ml Oral.Susp) 30 ml PO DAILY PRN PRN Reason: Constipation Melatonin (Melatonin 3 Mg Tablet) 6 mg PO BEDTIME PRN PRN Reason: Insomnia Sodium Chloride (0.9 % Sodium Chloride Flush 3 Ml Syringe) 3 ml IVFLUSH QSHIFT [facility] Last Admin: 11/19/23 09:59 Dose: Not Given Allergies Allergies Allergy/AdvReac Type Severity Reaction Status Date / Time No Known Allergies Allergy Verified 11/18/23 18:44 Assessment & Plan Assessment & Plan (1) [place] toxicity: Status: Acute Code(s): T56.891A - Toxic effect of other metals, accidental (unintentional), initial encounter (2) Bipolar 1 disorder, mixed, full remission: Status: Acute Code(s): F31.78 - Bipolar disorder, in full remission, most recent episode mixed (3) Borderline diabetes: Status: Acute Code(s): R73.03 - Prediabetes (4) Hypothyroidism: Status: Acute Code(s): E03.9 - Hypothyroidism, unspecified Plan Patient with hypokalemia elevated liver function tests elevated lithium level gradually improving balance and tremor seen times 3 occasions with improvement in sensorium and balance. Discussed with patient to hold lithium to be seen as an outpatient to continue Lamictal will recheck labs as an outpatient. Patient did show understanding did not seem confused when last seen will see as an outpatient Total time managing care of this patient today ____ minutes. Patient educated on: diagnosis and medication risk/benefits Informed Consent: understands
[2023-11-19 13:59] LABS: Anion Gap 10 (12-20); Carbon Dioxide 21 mmol/L (22-29); Chloride 113 mmol/L (96-108); Potassium 3.8 mmol/L (3.3-5.1); Sodium 140 mmol/L (135-145)
[2023-11-19 14:00] LABS: Lithium 1.58 mmol/L (0.60-1.20)
[2023-11-19] MEDS: cloNIDine HCL 0.1 MG TABLET 0.2 MG PO (20:33)
[2023-11-19] MEDS: 0.9 % Sodium Chloride Flush 3 ML SYRINGE IVFLUSH (20:36)
[2023-11-20] VITALS: BP 150/66; PULSE 117; RESP 20; TEMP 36.2; O2SAT 97
[2023-11-20 04:00] VITALS: BP 146/65; PULSE 65; RESP 18; TEMP 36; O2SAT 97
[2023-11-20] MEDS: Levothyroxine Sodium 75 MCG TABLET PO (04:20)
[2023-11-20] MEDS: 0.9 % Sodium Chloride 1,000 ML 125 ML IVCONT (04:20)
[2023-11-20 07:15] LABS: Lithium 0.93 mmol/L (0.60-1.20)
[2023-11-20 07:47] VITALS: BP 144/65; PULSE 97; RESP 16; TEMP 36.6; O2SAT 95
[2023-11-20 08:02] LABS: Anion Gap 10 (12-20); Blood Urea Nitrogen 5 mg/dL (9-16); Carbon Dioxide 23 mmol/L (22-29); Chloride 115 mmol/L (96-108); Creatinine Clr Calc Pharmacy 76.9; Estimated Glomerular Filt Rate > 60; Glucose Random 127 mg/dL (60-115); Potassium 3.7 mmol/L (3.3-5.1); Sodium 144 mmol/L (135-145)
[2023-11-20] MEDS: amLODIPine Besylate 5 MG TABLET PO ×2 (08:16→10:05)
[2023-11-20] MEDS: Enoxaparin Sodium 40 MG/0.4 ML SYRINGE SUBCUT (08:18)
[2023-11-20] MEDS: lamoTRIgine 25 MG TABLET 150 MG PO (08:18)
[2023-11-20] MEDS: cloNIDine HCL 0.1 MG TABLET PO (08:23)
--- NOTE | 2023-11-20 10:24 | MHC.CM.PN ---
pt has been medically cleared for DC, she will go home via family transport, DCP: self care.
== END 2023-11-20 10:35 | disposition home or self-care (01) | DRG 641 ==
LOC: HO.ED 19:53 → HO.EDOVER 20:17 → HO.IMC 11-19 16:49
PROVIDERS: Physician Assistant Medical; Psychiatry & Neurology Psychiatry; Admitting Provider Internal Medicine; Emergency Provider Emergency Medicine; PCP Nurse Practitioner Family; Visit Provider Internal Medicine
DX: E87.6 Hypokalemia (principal); E03.9 Hypothyroidism, unspecified; T43.595A Adverse effect of other antipsychotics and neuroleptics, initial encounter; F31.9 Bipolar disorder, unspecified; E83.52 Hypercalcemia; I10 Essential (primary) hypertension; T50.2X5A Adverse effect of carbonic-anhydrase inhibitors, benzothiadiazides and other diuretics, initial encounter; Z20.822 Contact with and (suspected) exposure to COVID-19; Z79.890 Hormone replacement therapy; Z79.899 Other long term (current) drug therapy
CPT/HCPCS: 0241U; 36415; 71046; 80048; 80051; 80053; 80076; 80178; 83690; 83735; 85025; 85027; 93005; 99285; J1650

== ENCOUNTER → 2023-11-18 19:05 | Outpatient (BNV) | payer BC, SELFPAY | PROVIDERS: Admitting Provider Internal Medicine; Emergency Provider Emergency Medicine; PCP Nurse Practitioner Family; Visit Provider Internal Medicine Cardiovascular Disease | DX: R94.31 Abnormal electrocardiogram [ECG] [EKG] (principal) | CPT/HCPCS: 93010 ==

== ENCOUNTER → 2023-11-18 20:11 | Outpatient (BNV) | payer BC, SELFPAY | PROVIDERS: Admitting Provider Internal Medicine; Emergency Provider Emergency Medicine; PCP Nurse Practitioner Family; Visit Provider Psychiatry & Neurology Psychiatry | DX: F31.78 Bipolar disorder, in full remission, most recent episode mixed (principal); T56.891A Toxic effect of other metals, accidental (unintentional), initial encounter; R73.03 Prediabetes; E03.9 Hypothyroidism, unspecified | CPT/HCPCS: 99232 ==

== ENCOUNTER → 2023-11-18 20:11 | Outpatient (BNV) | payer BC, SELFPAY | PROVIDERS: Admitting Provider Internal Medicine; Emergency Provider Emergency Medicine; PCP Nurse Practitioner Family; Visit Provider Internal Medicine | DX: R11.2 Nausea with vomiting, unspecified (principal); T56.891A Toxic effect of other metals, accidental (unintentional), initial encounter; E87.6 Hypokalemia; E83.52 Hypercalcemia | CPT/HCPCS: 99223; 99232; 99239 ==